=== PATIENT | female | born 1965 | race Caucasian/White ===

== ENCOUNTER 2020-04-11 17:26 | Emergency (ER) | payer BC ==
[~2020-04-11] VITALS: Ht 165.1 cm; Wt 83.6 kg
[2020-04-11 17:50] VITALS: BP 161/86
[2020-04-11] MEDS ORDERED: KETOROLAC 30 MG/ML VIAL. IVP ONE (18:00)
[2020-04-11 18:12] LABS: BASO # 0.1 x10^3/uL (0.0-0.2); BASO % 1 % (0-3); EOS # 0.2 x10^3/uL (0.0-0.7); EOS % 2 % (0-3); HEMATOCRIT 44.1 % (36.0-47.0); HEMOGLOBIN 14.7 g/dL (12.0-15.5); LYMPH # 3.3 x10^3/uL (1.0-4.8); LYMPH % 37 % (24-48); MEAN CORPUSCULAR HEMOGLOBIN 31 pg (25-35); MEAN CORPUSCULAR HGB CONC 33 g/dL (31-37); MEAN CORPUSCULAR VOLUME 92 fL (79-100); MONO # 0.7 x10^3/uL (0.0-1.1); MONO % 8 % (0-9); NEUT # 4.7 x10^3uL (1.8-7.7); NEUT % 52 % (31-73); PLATELET COUNT 246 x10^3/uL (140-400); RED BLOOD COUNT 4.81 x10^6/uL (3.50-5.40); RED CELL DISTRIBUTION WIDTH 13.1 % (11.5-14.5)
--- NOTE | 2020-04-11 18:12 | EKG ---
[address] [address] Test Date: 2020-04-11 Test Time: 17:34:11 Pat Name: ALONSO UP Department: Room: Gender: F Internal Communications Manager: ABIGAIL : [id number] Requested By: MARA SANDOVAL Order Number: [id number] Reading MD: Measurements Intervals [place] Rate: 61 P: 41 [place]: 146 QRS: 34 QRSD: 90 T: 59 QT: 420 QTc: 424 Interpretive Statements SINUS RHYTHM R-S TRANSITION ZONE IN V LEADS DISPLACED TO THE LEFT OTHERWISE NORMAL ECG RI6.02 No previous ECG available for comparison
[2020-04-11 18:15] LABS: CALCIUM 8.8 mg/dL (8.5-10.1); CREATININE 0.9 mg/dL (0.6-1.0); GFR 64.8; POTASSIUM 3.9 mmol/L (3.5-5.1)
[2020-04-11 18:31] LABS: ALBUMIN 3.8 g/dL (3.4-5.0); ALBUMIN/GLOBULIN RATIO 1.2 (1.0-1.7); TOTAL BILIRUBIN 0.2 mg/dL (0.2-1.0); TOTAL PROTEIN 7.1 g/dL (6.4-8.2)
[2020-04-11] MEDS ORDERED: IBUP600T16 PO (19:00)
--- NOTE | 2020-04-11 19:00 | PHYS DOC ---
Past History Past Medical History: No Pertinent History (MARA SANDOVAL APRN) Past Surgical History: Cholecystectomy, Hysterectomy, Other Additional Past Surgical Histo: thyroidectomy (MARA SANDOVAL APRN) Alcohol Use: None (MARA SANDOVAL APRN) Adult General Chief Complaint Chief Complaint: CHEST PAIN HPI HPI Patient is a 54 year old female who presents with complaints of a sudden onset of sternal chest pain at approximately 1330 today while she was working. 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 Patient states that the p ain increases with flexion of her head, movement of her upper extremities, flexion of her chest, and deep breathing. Patient rates her pain a 1/10 on a 1- 10 pain scale at rest and increases to a 4/10 pain with movement. Patient denies any nausea, vomiting, shortness of breath, or diaphoresis. Patient denies any injury to her chest. Patient denies any radiation of her chest pain s. Patient states that it does feel worse if she manually presses on the center of her chest. Patient states that at approximately 1430 she took 2 325 mg aspirins and also a dose of Gaviscon. Patient states that she has a family history of cardiac disease in both her mother and her father's side of the family also indicated her mother of some sort of heart problem that she is not completely clear or aware of, stating her father has had dense in the past. Patient states she does not smoke cigarettes and has never smoked cigarettes, occasionally drinks alcohol, does not use illicit drugs. Patient takes medications for her thyroid, medications for hormone replacement. Patient states that she had a cardiac ablation at [facility] on May 2018. Patient denies any fever or chills, visual changes, nasal congestion, cough, shortness of breath, abdominal pains, vomiting, diarrhea, constipation, problems urinating. Patient denies any pain in her back, patient denies any joint pain. Patient denies skin rashes, headaches, focal weaknesses, or sensory changes. Patient denies any increased thirst or increased urination, swelling of her glands, depressions, anxieties, homicidal or suicidal ideations. (MARA SANDOVAL APRN) Review of Systems Review of Systems Constitutional: Denies fever or chills Eyes: Denies change in visual acuity, redness, or eye pain HENT: Denies nasal congestion or sore throat Respiratory: Denies cough or shortness of breath Cardiovascular: Complains of sternal chest pain sudden onset at 1330 today that increases with movement of her extremities flexion of chest flexion of head, non radiating, increases with manual palpation to the sternal area. GI: Denies abdominal pain, nausea, vomiting, bloody stools or diarrhea : Denies dysuria or hematuria Musculoskeletal: Denies back pain or joint pain Integument: Denies rash or skin lesions Neurologic: Denies headache, focal weakness or sensory changes Endocrine: Denies polyuria or polydipsia All other systems were reviewed and found to be within normal limits, except as documented in this note. (MARA SANDOVAL APRN) Family History Family History Patient reports both her mother and father have a history of coronary artery disease. (MARA SANDOVAL APRN) Current Medications Current Medications Patient reports taking Topamax for headaches, and unknown dose of levothyroxine, and a hormone replacement cream. Current Medications Medications (Trade) Dose Ordered Sig/Jossie Start Time Stop Time Status Last Admin Dose Admin Ketorolac Tromethamine (Toradol 30mg Vial) 30 mg 1X ONCE 04/11/20 18:00 04/11/20 18:06 DC 04/11/20 18:13 30 MG (MARA SANDOVAL APRN) Allergies Allergies Allergies Coded Allergies Type Severity Reaction Last Updated Verified acetaminophen Allergy Unknown 04/11/20 Yes hydrocodone Allergy Unknown 04/11/20 Yes (MARA SANDOVAL APRN) Physical Exam Physical Exam Constitutional: Well developed, well nourished, no acute distress, non-toxic appearance. HENT: Normocephalic, atraumatic, bilateral external ears normal, oropharynx moist, no oral exudates, nose normal. Eyes: PERRLA, EOMI, conjunctiva normal, no discharge. Neck: Normal range of motion, no tenderness, supple, no stridor. Cardiovascular:Heart rate regular rhythm, no murmur, heart sounds S1-S2 auscultation. Lungs & Thorax: Bilateral breath sounds clear to auscultation Abdomen: Bowel sounds normal, soft, no tenderness, no masses, no pulsatile masses. Skin: Warm, dry, no erythema, no rash. Back: No tenderness, no CVA tenderness. Extremities: No tenderness, no cyanosis, no clubbing, ROM intact, no edema. Neurologic: Alert and oriented X 3, normal motor function, normal sensory fun ction, no focal deficits noted. Psychologic: Affect normal, judgement normal, mood normal. Musculoskeletal: Reproducible chest wall pain at sternum to palpation, flexion of upper extremities and chest, flexion of neck, and deep inspiration. No crepitus noted no ecchymotic areas noted no subcu air noted. (MARA SANDOVAL APRN) Current Patient Data Vital Signs Vital Signs Date Time Temp Pulse Resp B/P (MAP) Pulse Ox O2 Delivery O2 Flow Rate FiO2 04/11/20 17:50 69 18 161/86 (111) 97 Lab Results Laboratory Tests Test 04/11/20 17:57 White Blood Count 9.0 x10^3/uL (4.0-11.0) Red Blood Count 4.81 x10^6/uL (3.50-5.40) Hemoglobin 14.7 g/dL (12.0-15.5) Hematocrit 44.1 % (36.0-47.0) Mean Corpuscular Volume 92 fL (79-100) Mean Corpuscular Hemoglobin 31 pg (25-35) Mean Corpuscular Hemoglobin Concent 33 g/dL (31-37) Red Cell Distribution Width 13.1 % (11.5-14.5) Platelet Count 246 x10^3/uL (140-400) Neutrophils (%) (Auto) 52 % (31-73) Lymphocytes (%) (Auto) 37 % (24-48) Monocytes (%) (Auto) 8 % (0-9) Eosinophils (%) (Auto) 2 % (0-3) Basophils (%) (Auto) 1 % (0-3) Neutrophils # (Auto) 4.7 x10^3uL (1.8-7.7) Lymphocytes # (Auto) 3.3 x10^3/uL (1.0-4.8) Monocytes # (Auto) 0.7 x10^3/uL (0.0-1.1) Eosinophils # (Auto) 0.2 x10^3/uL (0.0-0.7) Basophils # (Auto) 0.1 x10^3/uL (0.0-0.2) Prothrombin Time 9.8 SEC (9.4-11.4) Prothrombin Time INR 0.9 (0.9-1.1) Activated Partial Thromboplast Time 26 SEC (23-33) D-Dimer (Tiffanie) 0.47 mg/L (0.00-0.50) Sodium Level 140 mmol/L (136-145) Potassium Level 3.9 mmol/L (3.5-5.1) Chloride Level 104 mmol/L (98-107) Carbon Dioxide Level 30 mmol/L (21-32) Anion Gap 6 (6-14) Blood Urea Nitrogen 16 mg/dL (7-20) Creatinine 0.9 mg/dL (0.6-1.0) Estimated GFR (Cockcroft-Gault) 64.8 BUN/Creatinine Ratio 18 (6-20) Glucose Level 83 mg/dL (70-99) Calcium Level 8.8 mg/dL (8.5-10.1) Total Bilirubin 0.2 mg/dL (0.2-1.0) Aspartate Amino Transferase (AST) 23 U/L (15-37) Alanine Aminotransferase (ALT) 18 U/L (14-59) Alkaline Phosphatase 68 U/L (46-116) Creatine Kinase 82 U/L (26-192) Creatine Kinase MB (Mass) 1.0 ng/mL (0.0-3.6) Creatine Kinase MB Relative Index 1.2 % (0-4) Troponin I Quantitative < 0.017 ng/mL (0-0.055) Total Protein 7.1 g/dL (6.4-8.2) Albumin 3.8 g/dL (3.4-5.0) Albumin/Globulin Ratio 1.2 (1.0-1.7) (MARA SANDOVAL APRN) EKG EKG EKG performed at 1734 by respiratory therapy, heart rate 61 bpm shows a normal sinus rhythm without ectopy, PA interval 0.146, QTc interval 0.424, no acute STEMI, no acute coronary syndrome, no acute ischemia noted, EKG interpreted by ED attending Dr. Cordon (MARA SANDOVAL APRN) Radiology/Procedures Radiology/Procedures [] (MARA SANDOVAL APRN) Heart Score HEART Score for Chest Pain: HEART Score for Chest Pain Response (Comments) Value History Slighlty/Non-Suspicious 0 ECG Normal 0 Age >45 - < 65 1 Risk Factors 1 or 2 Risk Factors 1 Troponin < Normal Limit 0 Total 2 Risk Factors: Risk Factors: DM, Current or recent (<one month) smoker, HTN, HLP, family history of CAD, obesity. Risk Scores: Risk Factors: DM, Current or recent (<one month) smoker, HTN, HLP, family history of CAD, obesity. (MARA SANDOVAL APRN) Course & Med Decision Making Course & Med Decision Making Pertinent Labs and Imaging studies reviewed. (See chart for details) 59-year-old female with stable vital signs reports to the ER today complaining of sternal chest pain. Pain was reproducible to palpation. Because of patient's age and history of hormone replacement and family history of cardiac problems and ER work-up was performed. The patient's cardiac enzymes resulted negative, her EKG was nonconcerning for acute MO, patient's heart score was 2 which is low probability of Mace. Could not rule out PE per PERC score of 2, a D-dimer was obtained and was negative, unlikely PE with negative D-dimer, a chest CT was not performed. A x-ray of the chest was not performed, patient's pain was reproducible to palpation and movement, patient did not have shortness of breath, the patient was not toxic, patient's lung sounds were clear to auscultation in all lung adam, patient's heart sounds were S1-S2 were auscultation without murmur. Patient's pain was relieved to a 0 after 30 mg of Toradol. Reexamination of patient patient was pain free, discussed findings with patient, recommended to patient that she take p.o. [id number] ibuprofen for the next few days 600 mg 3 times daily as this is most likely chest wall pain, patient was amenable to this plan, patient was given strict return to emergency room concerns, patient is to follow-up with her doctor soon for reevaluation of her chest pain, patient gave verbal understanding of discharge instructions, patient had no further questions or concerns, patient discharged home without incident, patient's vital signs remained stable throughout emergency department stay. (MARA SANDOVAL APRN) Dragon Disclaimer Dragon Disclaimer This electronic medical record was generated, in whole or in part, using a voice recognition dictation system. (MARA SANDOVAL APRN) Departure Departure: Impression: Primary Impression: Chest wall pain Disposition: 01 DC HOME SELF CARE/HOMELESS Condition: IMPROVED Referrals: ALEC LYN (PCP) Patient Instructions: Chest Wall Pain Additional Instructions: Please take 600 mg of Motrin 3 times a day for the next 2 to 3 days for this chest wall pain. Please return to the emergency department immediately for increasing pain, worsening symptoms, or further concerns. Follow-up with your doctor soon for reevaluation of your chest pain. EMERGENCY DEPARTMENT GENERAL DISCHARGE INSTRUCTIONS Thank you for coming to [facility] (ED) today and trusting us with you care. We trust that you had a positivie experience in our Emergency Department. If you wish to speak to the department management, you may call the director at [phone]. YOUR FOLLOW UP INSTRUCTIONS ARE FOLLOWS: 1. Do you have a private Doctor? If you do not have a private doctor, please ask for a resource list of physicians or clinics that may be able to assist you with follow up care. 2. The Emergency Physician has interpreted your x-rays. The X-Ray specialist will also review them. If there is a change in the findings, you will be notified in 48 hours when at all possible. 3. A lab test or culture has been done, your results will be reviewed and you will be notified if you need a change in treatment. ADDITIONAL INSTRUCTIONS AND INFORMATION: 1. Your care today has been supervised by a physician who is specially trained in emergency care. Many problems require more than one evaluation for a complete diagnosis and treatment. We recommend that you schedule your follow up appointment as recommended to ensure complete treatment of you illness or injury. If you are unable to obtain follow up care and continue to have a problem, or if your condition worsens, we recommend that you return to the ED. 2. We are not able to safely determine your condition over the phone nor are we able to give sound medical advice over the phone. For these safety reasons, if you call for medical advice we will ask you to come to the ED for further evaluation. 3. If you have any questions regarding these discharge instructions please call the ED at [phone]. SAFETY INFORMATION: In the interest of safety, wellness, and injury prevention; we encourage you to wear your sealbelt, if you smoke; quite smoking, and we encourage family to use a protective helmet for bicycling and other sporting events that present an increased risk for head injury. IF YOUR SYMPTOMS WORSEN OR NEW SYMPTOMS DEVELOP, OR YOU HAVE CONCERNS ABOUT YOUR CONDITION; OR IF YOUR CONDITION WORSENS WHILE YOU ARE WAITING FOR YOUR FOLLOW UP APPOINTMENT; EITHER CONTACT YOUR PRIMARY CARE DOCTOR, THE PHYSICIAN WHOSE NAME AND NUMBER YOU WERE GIVEN, OR RETURN TO THE ED IMMEDIATELY. Scripts Ibuprofen (IBUPROFEN) 600 Mg Tablet 600 MG PO TID for CHEST WALL PAIN, #12 TAB 0 Refills Prov: MARA SANDOVAL APRN 04/11/20 Attending Signature Attending Signature I have reviewed the PA/CAN CLEANER's note and plan of care. I was available for consultation as needed during the patient's visit in the emergency department. I agree with the clinical impression, plan, and disposition. (MARA CORDON DO) MARA SANDOVAL APRN Apr 11, 2020 19:00 MARA CORDON DO Apr 12, 2020 00:48
== END 2020-04-11 19:08 | disposition home or self-care (01) ==
LOC: ER 17:26
DX: R07.2 Precordial pain (principal); Z88.6 Allergy status to analgesic agent; Z88.5 Allergy status to narcotic agent
CPT/HCPCS: 36415; 80053; 82553; 84484; 85025; 85379; 85610; 85730; 93005; 96374; 99284; J1885